=== PATIENT | male | born 1960 | race Caucasian/White ===

== ENCOUNTER → 2021-09-15 | Outpatient (CLI) | payer OTHER ==
[2021-09-15 14:40] LABS: Basophils # (A) 0.06 X 10*3/uL (0.00-0.10); Basophils % (A) 0.8 %; Eosinophils # (A) 0.33 X 10*3/uL (0.04-0.35); Eosinophils % (A) 4.3 %; HCT 48.2 % (39.6-50.0); HGB 15.3 g/dL (13.0-17.0); Immature Grans, Automated 0.4 %; Lymphocytes % (A) 28.5 %; MCH 28.6 pg (27.0-32.0); MCHC 31.7 g/dL (32.0-37.0); MCV 90.1 fL (80.0-97.0); Mean Platelet Volume 9.8 fL (9.5-12.2); Monocytes % (A) 9.1 %; NRBC Per 100 WBC 0 /100 WBCS (0.0-0.0); Neutrophils # (A) 4.41 X 10*3/uL (1.80-7.70); Neutrophils % (A) 56.9 %; Platelet Count 190 X 10*3/uL (140-440); RBC 5.35 X 10*6/uL (4.40-5.60); RDW 14.4 % (11.5-14.5); WBC 7.73 X 10*3/uL (4.50-10.00)
[2021-09-15 16:39] LABS: African American GFR (CKD) 107.2 (60.0-200.0); Anion Gap 11.6 mmol/L (10.00-18.00); BUN/Creat Ratio 18.67 Ratio (12.00-20.00); Blood Urea Nitrogen 16.8 mg/dL (9.0-27.0); Calcium 9.7 mg/dL (8.7-10.3); Carbon Dioxide 24.4 mmol/L (20.0-27.5); Non-African American GFR(CKD) 92.5 (60.0-200.0); Potassium 4.5 mmol/L (3.5-5.5)
== END | disposition home or self-care (01) ==
LOC: LABPAT 08:19
PROVIDERS: ATTEND Urology
DX: Z01.812 Encounter for preprocedural laboratory examination (principal); C61 Malignant neoplasm of prostate
CPT/HCPCS: 36415; 80048; 85025

== ENCOUNTER 2021-09-22 07:18 | Observation (INO) | payer OTHER ==
[2021-09-20 12:21] VITALS: BMI 33.5
--- NOTE | 2021-09-22 06:36 | P.GSHP ---
History of Present Illness H&P Date: 09/22/21 Chief Complaint: Prostate cancer The patient is a 61-year-old white male whose PSA level was 11.51 in April 2021. A repeat PSA level was 11.0. CHRISTIANO revealed right apical firmness. Prostate ultrasound revealed a 33 g prostate with an 11 mm right apical hypoechoic lesion. 3 of 6 right-sided biopsies revealed Bray[place] 7 adenocarcinoma. The left lateral mid biopsy contained a tiny focus of [place] 6 adenocarcinoma. The patient denies voiding symptoms. He does report erectile dysfunction, for which he takes sildenafil. Alternative treatment options were reviewed, and he has elected to undergo a robotic-assisted laparoscopic prostatectomy (RALP) with bilateral pelvic lymphadenectomy. The left neurovascular bundle will be preserved. He has been cleared by cardiology. - EENT Ears: bilateral: decreased hearing - Cardiovascular Cardiovascular: Reports high blood pressure - Genitourinary (Female) Genitourinary: Reports as per HPI Past Medical History Past Medical History: Atrial Fibrillation, Cancer, Thyroid Disorder Additional Past Medical History / Comment(s): Prostate cancer. History of Any Multi-Drug Resistant Organisms: None Reported Past Surgical History: Cardiac Ablation, Orthopedic Surgery Additional Past Surgical History / Comment(s): Left shoulder surgery. 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 Cardioversion X2. Past Anesthesia/Blood Transfusion Reactions: No Reported Reaction Past Psychological History: No Psychological Hx Reported Smoking Status: Never smoker Past Alcohol Use History: Occasional Past Drug Use History: None Reported - Past Family History Father Family Medical History: Cancer Mother Family Medical History: Deep Vein Thrombosis (DVT) Medications and Allergies Home Medications Medication Instructions Recorded Confirmed Type Levothyroxine Sodium [Synthroid] 50 mcg PO QAM 09/20/21 09/20/21 History Allergies Allergy/AdvReac Type Severity Reaction Status Date / Time No Known Allergies Allergy Verified 09/20/21 12:03 Surgical - Exam - General well developed, well nourished, no distress - Neck no masses, trachea midline - Respiratory normal respiratory effort - Abdomen Abdomen: soft, non tender, no guarding, no rigid, no rebound Hernia: umbilical - Genitourinary normal penis with no external lesions, testicles non-tender - Rectum Rectum: normal sphincter tone, no masses, other (Prostate mildly enlarged with right apical firmness) - Psychiatric oriented to time, oriented to person, oriented to place, speech is normal, memory intact Assessment and Plan (1) Malignant neoplasm of prostate Status: Acute Code(s): C61 - MALIGNANT NEOPLASM OF PROSTATE SNOMED Code(s): 323561937 Plan: Robotic-assisted laparoscopic prostatectomy with bilateral pelvic lymphadenectomy. The procedure has been reviewed in detail with the patient. He is aware of potential risks, which include anesthesia, bleeding, infection, intestinal injury (which may require a colostomy), ureteral injury, swelling of the penis post-operatively, bladder neck contracture, urethral stricture, lymphocele, post-operative ileus, thrombophlebitis, wound separation, and possible urinary fistula. In addition, I went into great detail concerning the possibility of postop urinary incontinence, which may fail to resolve. The patient has also been advised of the possibility of treatment failure, and the possible need for adjuvant therapy. He is interested in maintaining potency and thus desires left neurovascular bundle preservation. However, he understands the likelihood of postoperative erectile dysfunction despite this.
[~2021-09-22 07:18] MED LIST: DEXAMETHASONE SOD PHOSPHATE 4 MG/ML 1 ML VIAL IV ONE; HEPARIN SODIUM,PORCINE/PF 5,000 UNIT/0.5 ML SYRINGE SQ PRN; HYDROmorphone 0.5 MG/0.5 ML SYRINGE IVP PRN; LIDOCAINE 1% (10MG/ML) FOR IV START INTRADERMA PRN; METOCLOPRAMIDE 5 MG/ML 2 ML VIAL IVP PRN; MIDAZOLAM 2 MG/2 ML VIAL IV PRN; ONDANSETRON 4 MG/2 ML VIAL IVP ONE; ceFAZolin 3 GM in SODIUM CHLORIDE 0.9% 100 ML IVPB PRN
[2021-09-22] MEDS: LACTATED RINGERS 1,000 ML IV SCH (08:11)
[2021-09-22] MEDS ORDERED: MIDAZOLAM 2 MG/2 ML VIAL IVP ONE (08:43)
[2021-09-22] MEDS ORDERED: fentaNYL (PF) 50 MCG/ML 2 ML AMP IVP ONE (08:44)
[2021-09-22] MEDS ORDERED: BUPIVACAINE (PF) 0.25% 30 ML VIAL SQ ONE (09:10)
[2021-09-22] MEDS ORDERED: LACTATED RINGERS 1,000 ML IV ONE (12:13)
[2021-09-22] MEDS ORDERED: ONDANSETRON 4 MG/2 ML VIAL IVP PRN (13:40)
[2021-09-22] MEDS ORDERED: ACETAMINOPHEN TAB 325 MG TAB PO PRN (13:40)
[2021-09-22] MEDS ORDERED: ALBUTEROL NEBULIZED 2.5 MG/3 ML INHALATION ONE (14:15)
[2021-09-22] MEDS: MEPERIDINE 50 MG/ML SYRINGE IVP ONE ×2 (14:33→15:26)
--- NOTE | 2021-09-22 14:39 | P.ANPRN ---
Procedure Note - Anesthesia - Nerve Block Performed Bilateral Erector Spinae Single Time Out Performed: Yes ([id number]) Date of Procedure: 09/22/21 Procedure Start Time: 08:43 Procedure Stop Time: 08:48 Location of Patient: PreOp Indication: Acute Post-Operative Pain, Requested by Surgeon Specifically requested for management of pain by DrKrystle: William Vinson Sedation Type: Sedate with meaningful contact maintained Preparation: Sterile Prep Position: Prone Catheter: None Needle Types: Pajunk Needle Gauge: 21 Ultrasound used to visualize needle placement: Yes Ultrasound used to observe medication spread: Yes Injectate: 0.5% Ropivacaine (see comment for volume) (20cc + 10cc nacl pf each side) Blood Aspirated: No Pain Paresthesia on Injection Noted: No Resistance on Injection: Normal Image Stored and Saved: Yes Events: Uneventful and Well Tolerated
[2021-09-22] MEDS: KETOROLAC 15 MG/ML 1 ML VIAL IVP PRN (17:09)
[2021-09-22] MEDS: DEXTROSE 5%-0.45% NACL 1,000 ML IV SCH ×2 (17:53→19:26)
[2021-09-22] MEDS: HYDROmorphone 1 MG/ML 1 ML SYRINGE IVP PRN (19:25)
[2021-09-22] MEDS: HEPARIN SODIUM,PORCINE/PF 5,000 UNIT/0.5 ML SYRINGE SQ SCH (19:26)
[2021-09-22 20:58] LABS: Basophils % (A) 0 %; Eosinophils % (A) 0 %; HCT 47.9 % (39.0-53.0); HGB 14.8 gm/dL (13.0-17.5); Lymphocytes # (A) 0.8 k/uL (1.0-4.8); Lymphocytes % (A) 5 %; MCH 28.6 pg (25.0-35.0); MCV 92.2 fL (80.0-100.0); Mean Platelet Volume 7.3; Monocytes # (A) 0.7 k/uL (0-1.0); Monocytes % (A) 5 %; Neutrophils # (A) 13.4 k/uL (1.3-7.7); Neutrophils % (A) 89 %; Platelet Count 206 k/uL (150-450); RBC 5.19 m/uL (4.30-5.90); RDW 13.9 % (11.5-15.5); WBC 15.2 k/uL (3.8-10.6)
[2021-09-22 21:03] LABS: African American GFR (CKD) >90 (>60 ml/min/1.73 sqM); Anion Gap 7 mmol/L; Blood Urea Nitrogen 21 mg/dL (9-20); Calcium 8.7 mg/dL (8.4-10.2); Carbon Dioxide 23 mmol/L (22-30); Chloride 106 mmol/L (98-107); Glucose 140 mg/dL (74-99); Non-African American GFR(CKD) 84 (>60 ml/min/1.73 sqM); Sodium 136 mmol/L (137-145)
[2021-09-23] MEDS: HYDROmorphone 1 MG/ML 1 ML SYRINGE IVP PRN ×2 (00:12→19:17)
[2021-09-23] MEDS: LEVOTHYROXINE 50 MCG TAB PO SCH (04:13)
[2021-09-23] MEDS: DEXTROSE 5%-0.45% NACL 1,000 ML IV SCH ×3 (04:15→20:55)
[2021-09-23] MEDS: LACTATED RINGERS 1,000 ML IV SCH (04:18)
[2021-09-23] MEDS: KETOROLAC 15 MG/ML 1 ML VIAL IVP PRN ×2 (08:37→14:20)
[2021-09-23] MEDS: HEPARIN SODIUM,PORCINE/PF 5,000 UNIT/0.5 ML SYRINGE SQ SCH ×2 (09:38→20:53)
[2021-09-23] MEDS ORDERED: NEOSTIGMINE 1 MG/ML 10 ML VIAL ONE (12:15)
[2021-09-23] MEDS ORDERED: MIDAZOLAM 2 MG/2 ML VIAL ONE (12:15)
[2021-09-23] MEDS ORDERED: ROCURONIUM 10 MG/ML (5 ML VIAL) IV ONE (12:15)
[2021-09-23] MEDS ORDERED: LIDOCAINE 2% INJ 20 MG/ML (2 ML VIAL) ONE (12:15)
[2021-09-23] MEDS ORDERED: SUCCINYLCHOLINE CHLORIDE 100 MG/5 ML SYR IV ONE (12:15)
[2021-09-23] MEDS ORDERED: fentaNYL (PF) 50 MCG/ML 2 ML AMP ONE (12:15)
[2021-09-23] MEDS ORDERED: HYDROmorphone (PF) 1 MG/ML ONE (12:15)
[2021-09-23] MEDS ORDERED: PROPOFOL 10 MG/ML 20 ML VIAL IV ONE (12:15)
[2021-09-23] MEDS ORDERED: GLYCOPYRROLATE 0.2 MG/ML 2 ML VIAL ONE (12:15)
--- NOTE | 2021-09-23 14:12 | P.CONS ---
History of Present Illness - Reason for Consult Consult date: 09/23/21 Medical management Requesting physician: Fabio Alexandre - Chief Complaint Prostate surgery - History of Present Illness This is a pleasant 61-year-old patient of also Dr. Fabio Alexandre. Chronic stable medical conditions include atrial fibrillation, hypothyroid, and [id number] had open heart surgery for congenital defect. Patient's had previous 2 cardioversions. Patient has a PSA level of 11.5 in April 2021. Prostate ultrasound showed a 30 g prostate with the right apical hypoechoic lesion. 3 out of 6 right-sided biopsy revealed [place] 7 adenocarcinoma. Left lateral mid biopsy showed a tiny focus of Brayden 6 adenocarcinoma. Patient has erectile dysfunction. For which she takes sildenafil. Patient underwent robotic- assisted laparoscopic prostatectomy with bilateral pelvic lymphadenectomy. Postprocedure patient is a Nolen catheter in place. Has been locally. No nausea vomiting. A liquid diet. No cardiac symptoms. Yesterday evening patient did go into atrial fibrillation with a rapid ventricular rate. And then went back to better controlled. Heart rate around 100 to [place].. Review of systems: GEN.: Tired EYES: None HEENT: None NECK: None RESPIRATORY: None CARDIOVASCULAR: None GASTROINTESTINAL: None GENITOURINARY: As above MUSCULOSKELETAL: None LYMPHATICS: None HEMATOLOGICAL: None PSYCHIATRY: None NEUROLOGICAL: None Past medical history to include: Prostate cancer, atrial fibrillation, hypothyroid Social history: Lives with his girlfriend. 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 No smoking. Alcohol occasionally. Family history: Cancer Physical examination: VITAL SIGNS: 98.1, 77, 18, 110/69, 90% room air] GENERAL: BMI 35.1, laying in bed awake, bit tired. EYES: Pupils equal. Conjunctiva normal. HEENT: External appearance of nose and ears normal, oral cavity grossly normal. NECK: JVD not raised; masses not palpable. HEART: Heart sounds irregular; no edema. LUNGS: Respiratory rate normal; clear to auscultation. ABDOMEN: Soft, nontender, liver spleen not palpable, no masses palpable. Nolen catheter. PSYCH: Alert and oriented x3; mood and affect normal. MUSCULOSKELETAL:No Clubbing/cyanosis;muscles-grossly intact NEUROLOGICAL: Cranial nerves grossly intact; no facial asymmetry, power and sensation grossly intact. LYMPHATICS: No lymph nodes palpable in the axilla and neck INVESTIGATIONS, reviewed in the clinical context: White count 15.2 hemoglobin 14.8 platelets 206 sodium 136 potassium 5 BUN 21 creatinine 0.98 Telemetry strip personally reviewed by me: Atrial fibrillation with rapid ventricular rate Assessment and plan: -Chronic atrial fibrillation with increased rapid rate yesterday evening. Heart rate around heart rate today. We'll start Lopressor 12.5 by mouth twice a day. This is likely precipitated by change to volume status and sympathetic drive from pain. Patient chronically does not take any anticoagulation. Because of minimal SHIRAZ score. -Obesity BMI 35.1 Weight loss measures -Prostatectomy for adenocarcinoma Patient currently has a Nolen catheter. -Hypothyroid Synthroid 50 g a day Continue with telemetry. Lopressor 12.5 by mouth twice a day. Other medications to continue. Activity as tolerated. Discussed with patient. Thank you Dr. Hui - Past Medical History Past Medical History: Atrial Fibrillation, Cancer, Thyroid Disorder Additional Past Medical History / Comment(s): Prostate cancer. History of Any Multi-Drug Resistant Organisms: None Reported Past Surgical History: Cardiac Ablation, Orthopedic Surgery Additional Past Surgical History / Comment(s): Left shoulder surgery. 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 Cardioversion X2. Past Anesthesia/Blood Transfusion Reactions: No Reported Reaction Past Psychological History: No Psychological Hx Reported Smoking Status: Never smoker Past Alcohol Use History: Occasional Past Drug Use History: None Reported - Past Family History Father Family Medical History: Cancer Mother Family Medical History: Deep Vein Thrombosis (DVT) Medications and Allergies Home Medications Medication Instructions Recorded Confirmed Type Levothyroxine Sodium [Synthroid] 50 mcg PO QAM 09/20/21 09/22/21 History Allergies Allergy/AdvReac Type Severity Reaction Status Date / Time No Known Allergies Allergy Verified 09/22/21 07:45 Physical Exam Vitals: Vital Signs Temp Pulse Pulse Resp BP Pulse Ox 09/23/21 01:01 98.1 F 106 H 17 118/69 97 09/22/21 18:45 123 H 118/71 09/22/21 18:28 129 H 121/78 96 09/22/21 18:13 120 H 118/77 97 09/22/21 17:59 120 H 107/70 95 09/22/21 17:43 125 H 112/75 97 09/22/21 17:29 107 H 111/64 94 L 09/22/21 17:13 128 H 115/75 94 L 09/22/21 17:12 136 H 105/65 96 09/22/21 16:59 133 H 112/69 94 L 09/22/21 16:43 98.5 F 131 H 16 119/87 96 09/22/21 15:50 124 H 18 117/75 96 09/22/21 15:36 115 H 18 117/73 94 L 09/22/21 15:20 128 H 18 129/75 93 L 09/22/21 15:05 112 H 18 126/67 95 09/22/21 14:50 125 H 20 143/85 94 L 09/22/21 14:35 114 H 18 135/99 95 09/22/21 14:20 136 H 20 182/76 96 09/22/21 14:05 126 H 22 187/137 97 09/22/21 13:50 96.8 F L 14 126/74 98 Intake and Output 09/22/21 09/23/21 09/23/21 22:59 06:59 14:59 Intake Total 600 1750 Output Total 300 800 Balance 300 950 Intake: IV 500 Intake, IV Titration 1300 Amount Dextrose 5%-0.45% NaCl 1, 1300 000 ml @ 125 mls/hr IV . Q8H [facility] Rx#:[id number] Oral 100 450 Output: Urine 300 800 Other: Voiding Method Indwelling Catheter Results CBC & Chem 7: 09/22/21 20:28 09/22/21 20:27 Labs: Abnormal Lab Results - Last 24 Hours (Table) 09/22/21 09/22/21 Range/Units 20:27 20:28 WBC 15.2 H (3.8-10.6) k/uL Neutrophils # 13.4 H (1.3-7.7) k/uL Lymphocytes # 0.8 L (1.0-4.8) k/uL Sodium 136 L (137-145) mmol/L BUN 21 H (9-20) mg/dL Glucose 140 H (74-99) mg/dL
--- NOTE | 2021-09-23 14:17 | P.PN ---
Subjective Progress Note Date: 09/23/21 Postoperative day #1 status post robotic prostatectomy, patient was tachycardic overnight,. His history of A. fib. This morning having incisional pain along the umbilicus, denies any nausea or vomiting. Has not ambulated yet Objective - Vital Signs Vital signs: Vital Signs Temp 98.9 F 09/23/21 08:00 Pulse 97 09/23/21 08:00 Resp 18 09/23/21 08:00 BP 110/69 09/23/21 08:00 Pulse Ox 90 L 09/23/21 08:00 Intake & Output 09/22/21 09/23/21 09/23/21 18:59 06:59 18:59 Intake Total 2400 1750 Output Total 950 800 Balance 1450 950 Weight 137.7 kg Intake: IV 2300 Intake, IV Titration 1300 Amount Dextrose 5%-0.45% NaCl 1, 1300 000 ml @ 125 mls/hr IV . Q8H [facility] Rx#:[id number] Oral 100 450 Output: Urine 800 800 Estimated Blood Loss 150 Other: Voiding Method Indwelling Catheter Indwelling Catheter - Constitutional General appearance: Present: no acute distress - Gastrointestinal General gastrointestinal: Present: soft, tenderness (Along the umbilical incision). Absent: distended - Psychiatric Psychiatric: Present: A&O x's 3 - Labs CBC & Chem 7: 09/22/21 20:28 09/22/21 20:27 Labs: Abnormal Lab Results - Last 24 Hours (Table) 09/22/21 09/22/21 Range/Units 20:27 20:28 WBC 15.2 H (3.8-10.6) k/uL Neutrophils # 13.4 H (1.3-7.7) k/uL Lymphocytes # 0.8 L (1.0-4.8) k/uL Sodium 136 L (137-145) mmol/L BUN 21 H (9-20) mg/dL Glucose 140 H (74-99) mg/dL Assessment and Plan Assessment: Postoperative day #1 status post robotic prostatectomy. -Medical consulted for tachycardia -Ambulate -Pain control -Potential discharge home tomorrow
[2021-09-23] MEDS: METOPROLOL TARTRATE 12.5 MG TAB PO SCH ×2 (14:20→20:53)
[2021-09-24] MEDS: LACTATED RINGERS 1,000 ML IV SCH (05:36)
[2021-09-24] MEDS: HYDROmorphone 1 MG/ML 1 ML SYRINGE IVP PRN (05:38)
[2021-09-24] MEDS: LEVOTHYROXINE 50 MCG TAB PO SCH (05:39)
[2021-09-24] MEDS: DEXTROSE 5%-0.45% NACL 1,000 ML IV SCH ×3 (06:03→23:40)
--- NOTE | 2021-09-24 08:00 | P.OP ---
Date of Procedure: 09/22/21 Preoperative Diagnosis: Adenocarcinoma of the prostate, clinical stage [id number], umbilical hernia Postoperative Diagnosis: Same Procedure(s) Performed: Robotic-assisted laparoscopic prostatectomy (RALP), bilateral pelvic lymphadenectomy, umbilical hernia repair Anesthesia: PRASANTH Surgeon: William Vinson Buildings Painter #1: Devon Swartz Estimated Blood Loss (ml): 150 IV fluids (ml): 1,300 Pathology: other (Bilateral pelvic lymph nodes, prostate, seminal vesicles) Condition: stable Disposition: PACU Indications for Procedure: The patient is a 61-year-old white male whose PSA level was 11.51 in April 2021. A repeat PSA level was 11.0. CHRISTIANO revealed right apical firmness. Prostate ultrasound revealed a 33 g prostate with an 11 mm right apical hypoechoic lesion. 3 of 6 right-sided biopsies revealed [place] 7 adenocarcinoma. The left lateral mid biopsy contained a tiny focus of [place] 6 adenocarcinoma. The patient denies voiding symptoms. He does report erectile dysfunction, for which he takes sildenafil. Alternative treatment options were reviewed, and he has elected to undergo a robotic-assisted laparoscopic prostatectomy (RALP) with bilateral pelvic lymphadenectomy. The left neurovascular bundle will be preserved. He has been cleared by cardiology. Operative Findings: The patient was taken in the operating room and placed in the supine position. He was carefully positioned on a beanbag for stability. The abdomen and external genitalia were prepped and draped sterilely. A Nolen catheter was inserted. The Veress needle was passed through the anterior abdominal wall immediately cephalad to the umbilicus, and insufflation was performed to a pressure of 20 mm Hg. Once insufflation was performed, the Veress needle was removed and a supraumbilical incision was made, through which an 8 mm camera port was placed. Under camera guidance, 3 8 mm robotic ports were placed, 2 on the left and one on the right. A 12 mm port was placed on the right lateral side for use as an university administrative assistant port. A 5 mm port was placed to the right of the camera port for suction. The patient was placed in Trendelenburg position, and docking was then performed to the da Joon system utilizing a 4-arm approach. The abdomen was examined. The sigmoid colon was mobilized out of the pelvis. The peritoneum was incised lateral to the medial umbilical ligaments bilaterally, exposing the pubis. The peritoneum was then incised across the midline, allowing the bladder flap to be taken down. The endopelvic fascia was opened bilaterally, and muscular attachments from the urogenital diaphragm were swept away from the prostate. Bilateral pelvic lymphadenectomies were performed in the standard fashion. The peritoneal incisions were extended in a cephalad direction, and the vas deferens were divided bilaterally. Margins of dissection were the bifurcation of the iliac vessels proximally, the circumflex iliac vein distally, the external iliac artery laterally, and the obturator nerve medially. A combination of sharp and blunt dissection was used. Care was taken to avoid any neurovascular injury, and the use of monopolar electrocautery was avoided immediately adjacent to neur ovascular structures. The lymphatic package was clipped distally. No enlarged lymph nodes were encountered. There were no complications. The vesical neck was incised transversely, down to the lumen. The Nolen catheter was brought out through the anterior vesical neck incision and was used for traction. The posterior aspect of the vesical neck was incised, such that the full-thickness of the vesical neck was divided. The anterior layer of the Denonvilliers fascia was incised, exposing the vas deferens. Each were isolated and divided. Next, each of the seminal vesicles were dissected away from adjacent tissues, and vascular attachments were cauterized and divided. The posterior leaf of Denonvilliers fascia was incised transversely, allowing entry into the plane between the prostate and rectum. With lateral spreading, this plane was developed down to the apex. This exposed the lateral vascular pedicles bilaterally. These were clipped and divided in an antegrade fashion, down to the apex. The use of electrocautery was avoided to prevent thermal damage to the nerves. The remaining apical attachments were swept away from the prostate. The dorsal venous complex was incised, as well as periurethral tissue. At this point, only the urethra remained intact. This was transected immediately distal to the prostatic apex using cold scissors. The specimen was placed within a specimen bag. The dorsal venous complex was sutured using a V-Loc suture in a running fashion. The suture was passed through the periosteum of the pubis periurethral support. A second V-Loc suture was then used to place the Mitch stitch, incorporating the rhabdosphincter and the edge of Denonvilliers fascia. This allowed the bladder to be taken down to the urethra, leaving the vesical neck immediately adjacent to the urethra. The vesicourethral anastomosis was then performed using a V-Loc suture in a running fashion. After completing the anastomosis, an 18-Danish Nolen catheter was placed and approximately 150 mL of 0.9 normal saline were instilled into the bladder. No extravasation of irrigant from the vesicourethral anastomosis was noted. A small amount of oozing was noted from the vascular pedicles, so Surgicel was placed bilaterally. Tisseel was sprayed into the pelvis over the vascular pedicles, dorsal vein, and vesicourethral anastomosis. The patient was returned to the supine position. Undocking was performed, and the specimen bag sutures were passed through the camera port. After removing all the ports and allowing all of the CO2 to be released from the peritoneal cavity, the camera port incision was enlarged to allow removal of the surgical specimen. The fascia of this incision was then closed using 0 PDS suture in a running fashion. Each of the skin incisions were then closed using 4-0 Monocryl suture in a subcuticular fashion. Marcaine was injected at each of the incision sites. Dermabond was applied to each incision. The Nolen catheter was co nnected to gravity drainage. All sponge and needle counts were correct. The patient tolerated the procedure well was taken to the recovery room in stable condition. Description of Procedure: The patient was taken in the operating room and placed in the supine position. He was carefully positioned on a beanbag for stability. The abdomen and external genitalia were prepped and draped sterilely. A Nolen catheter was inserted. The Veress needle was passed through the anterior abdominal wall immediately cephalad to the umbilicus, and insufflation was performed to a pressure of 20 mm Hg. Once insufflation was performed, the Veress needle was removed and a supraumbilical incision was made, through which an 8 mm camera port was placed. Under camera guidance, 3 8 mm robotic ports were placed, 2 on the left and one on the right. A 12 mm port was placed on the right lateral side for use as an university administrative assistant port. A 5 mm port was placed to the right of the camera port for suction. The patient was placed in Trendelenburg position, and docking was then performed to the stickK Jono system utilizing a 4-arm approach. The abdomen was examined. The sigmoid colon was mobilized out of the pelvis. The peritoneum was incised lateral to the medial umbilical ligaments bilaterally, exposing the pubis. The peritoneum was then incised across the midline, allowing the bladder flap to be taken down. The endopelvic fascia was opened bilaterally, and muscular attachments from the urogenital diaphragm were swept away from the prostate. Bilateral pelvic lymphadenectomies were performed in the standard fashion. The peritoneal incisions were extended in a cephalad direction, and the vas deferens were divided bilaterally. Margins of dissection were the bifurcation of the iliac vessels proximally, the circumflex iliac vein distally, the external iliac artery laterally, and the obturator nerve medially. A combination of sharp and blunt dissection was used. Care was taken to avoid any neurovascular injury, and the use of monopolar electrocautery was avoided immediately adjacent to neurovascular structures. The lymphatic package was clipped distally. No enlarged lymph nodes were encountered. There were no complications. The vesical neck was incised transversely, down to the lumen. The Nolen catheter was brought out through the anterior vesical neck incision and was used for traction. The posterior aspect of the vesical neck was incised, such that the full-thickness of the vesical neck was divided. The anterior layer of the Denonvilliers fascia was incised, exposing the vas deferens. Each were isolated and divided. Next, each of the seminal vesicles were dissected away from adjacent tissues, and vascular attachments were cauterized and divided. The posterior leaf of Denonvilliers fascia was incised transversely, allowing entry into the plane between the prostate and rectum. With lateral spreading, this plane was developed down to the apex. This exposed the lateral vascular pedicles bilaterally. These were clipped and divided in an antegrade fashion, down to the apex. The use of electrocautery was avoided on the left side to prevent thermal damage to the nerves, as the left neurovascular bundle was preserved. The remaining apical attachments were swept away from the prostate. The dorsal venous complex was incised, as well as periurethral tissue. At this point, only the urethra remained intact. This was transected immediately distal to the prostatic apex using cold scissors. The specimen was placed within a specimen bag. The dorsal venous complex was sutured using a V-Loc suture in a running fashion. The suture was passed through the periosteum of the pubis periurethral support. A second V-Loc suture was then used to place the Mitch stitch, incorporating the rhabdosphincter and the edge of Denonvilliers fascia. This allowed the bladder to be taken down to the urethra, leaving the vesical neck immediately adjacent to the urethra. The vesicourethral anastomosis was then performed using a V-Loc suture in a running fashion. After completing the anastomosis, an 18-Danish Nolen catheter was placed and approximately 150 mL of 0.9 normal saline were instilled into the bladder. No extravasation of irrigant from the vesicourethral anastomosis was noted. Hemostasis was noted at this time to be e xcellent, and it was thus felt that a drain was unnecessary. Surgicel was placed bilaterally over the vascular pedicles. Tisseel was sprayed into the pelvis over the vascular pedicles, dorsal vein, and vesicourethral anastomosis. The patient was returned to the supine position. Undocking was performed, and the specimen bag sutures were passed through the camera port. After removing all the ports and allowing all of the CO2 to be released from the peritoneal cavity, the camera port incision was enlarged to allow removal of the surgical specimen. Attention was then paid to the umbilical hernia. The incision was extended inferiorly around the umbilicus to improve exposure to the hernia. The fascia was incised down to the hernia, and the hernia sac was reduced. The fascia of this incision was then closed using 0 PDS suture in a running fashion. This skin incision was closed using surgical rozina. The remaining incisions were then closed using 4-0 Monocryl suture in a subcuticular fashion. Marcaine was injected at each of the incision sites. Dermabond was applied to each incision. A sterile gauze dressing was applied over the umbilical incision. The Nolen catheter was connected to gravity drainage. All sponge and needle counts were correct. The patient tolerated the procedure well was taken to the recovery room in stable condition.
[2021-09-24] MEDS: HEPARIN SODIUM,PORCINE/PF 5,000 UNIT/0.5 ML SYRINGE SQ SCH ×2 (09:11→20:18)
[2021-09-24] MEDS: METOPROLOL TARTRATE 12.5 MG TAB PO SCH ×2 (09:11→20:18)
[2021-09-24] MEDS: HYDROcodone/APAP 5-325MG 1 EACH TAB PO PRN ×2 (12:15→16:40)
--- NOTE | 2021-09-24 13:01 | P.PN ---
Subjective Postoperative day #2 status post robotic prostatectomy. This morning having incisional pain along the umbilicus,slightly improved compared to yesterday. denies any nausea or vomiting. Has not ambulated yet Objective - Vital Signs Vital signs: Vital Signs Temp 98.5 F 09/24/21 08:00 Pulse 102 H 09/24/21 08:00 Resp 18 09/24/21 08:00 BP 122/76 09/24/21 08:00 Pulse Ox 94 L 09/24/21 08:00 Intake & Output 09/23/21 09/24/21 09/24/21 18:59 06:59 18:59 Intake Total 1270 1500 Output Total 1300 3400 Balance -30 1500 -3400 Intake: Intake, IV Titration 1500 Amount Dextrose 5%-0.45% NaCl 1, 1500 000 ml @ 125 mls/hr IV . Q8H [facility] Rx#:[id number] Oral 1270 Output: Urine 1300 3400 Other: Voiding Method Indwelling Catheter Indwelling Catheter Indwelling Catheter - Constitutional General appearance: Present: no acute distress - Gastrointestinal General gastrointestinal: Present: distended, soft. Absent: tenderness - Labs CBC & Chem 7: 09/22/21 20:28 09/22/21 20:27 Assessment and Plan Assessment: Postoperative day #2 status post robotic prostatectomy. -Medical consulted for tachycardia -Ambulate, emphasized with him the importance of ambulation given the risk of an ileus and blood clot -Pain control -Potential discharge home today if ambulating and pain improved vs tomorrow
--- NOTE | 2021-09-24 16:41 | P.PN ---
Progress Note - Text Progress Note Date: 09/24/21 - Chief Complaint Prostate surgery This is a pleasant 61-year-old patient of also Dr. Fabio Alexandre. Chronic stable medical conditions include atrial fibrillation, hypothyroid, and [id number] had open heart surgery for congenital defect. Patient's had previous 2 card ioversions. Patient has a PSA level of 11.5 in April 2021. Prostate ultrasound showed a 30 g prostate with the right apical hypoechoic lesion. 3 out of 6 right-sided biopsy revealed [place] 7 adenocarcinoma. Left lateral mid biopsy showed a tiny focus of [place] 6 adenocarcinoma. Patient has erectile dysfunction. For which she takes sildenafil. Patient underwent robotic- assisted laparoscopic prostatectomy with bilateral pelvic lymphadenectomy. Postprocedure patient is a Nolen catheter in place. Has been locally. No nausea vomiting. A liquid diet. No cardiac symptoms. Yesterday evening patient did go into atrial fibrillation with a rapid ventricular rate. And then went back to better controlled. Heart rate around 100 to [place].. September 24: On clear liquids. Slight improvement in pain. Nolen catheter in place. Heart rate strong 100. Active Medications Acetaminophen (Acetaminophen Tab 325 Mg Tab) 650 mg PO Q4HR PRN PRN Reason: Fever Stop: 10/22/21 13:41 Last Admin: 09/23/21 04:13 Dose: 650 mg Documented by: Hydrocodone Bitart/Acetaminophen (Hydrocodone/Apap 5-325mg 1 Each Tab) 1 each PO Q4HR PRN PRN Reason: Pain Last Admin: 09/24/21 16:40 Dose: 1 each Documented by: Heparin Sodium (Porcine) (Heparin Sodium,Porcine/Pf 5,000 Unit/0.5 Ml Syringe) 5,000 unit SQ Q12HR NEAL Stop: 10/22/21 21:01 Last Admin: 09/24/21 09:11 Dose: 5,000 unit Documented by: Lactated Ringer's (Lactated Ringers) 1,000 mls @ 20 mls/hr IV .Q24H NEAL Stop: 10/22/21 05:59 Last Admin: 09/24/21 05:36 Dose: Not Given Documented by: Dextrose/Sodium Chloride (Dextrose 5%-1/2ns Iv Soln) 1,000 mls @ 125 mls/hr IV .Q8H NEAL Stop: 10/22/21 13:46 Last Admin: 09/24/21 14:36 Dose: 125 mls/hr Documented by: Ketorolac Tromethamine (Ketorolac 15 Mg/Ml 1 Ml Vial) 15 mg IVP Q6HR PRN PRN Reason: Mild to Moderate Pain Stop: 09/25/21 13:41 Last Admin: 09/23/21 14:20 Dose: 15 mg Documented by: Levothyroxine Sodium (Levothyroxine 50 Mcg Tab) 50 mcg PO QAM@0630 [facility] Stop: 10/23/21 06:31 Last Admin: 09/24/21 05:39 Dose: 50 mcg Documented by: Lidocaine HCl (Lidocaine 1% (10mg/Ml) For Iv Start) 0.1 ml INTRADERMA PER PROTOCOL PRN PRN Reason: IV Start Stop: 10/22/21 05:59 Metoprolol Tartrate (Metoprolol Tartrate 12.5 Mg Tab) 12.5 mg PO BID [facility] Last Admin: 09/24/21 09:11 Dose: 12.5 mg Documented by: Ondansetron HCl (Ondansetron 4 Mg/2 Ml Vial) 4 mg IVP Q8HR PRN PRN Reason: Nausea Stop: 10/22/21 13:41 Past medical history to include: Prostate cancer, atrial fibrillation, hypothyroid Social history: Lives with his girlfriend. 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 No smoking. Alcohol occasionally. Family history: Cancer Physical examination: VITAL SIGNS: 98, 91, 18, 140/88, 96% room air GENERAL: laying in bed awake, bit tired. EYES: Pupils equal. Conjunctiva normal. HEENT: External appearance of nose and ears normal, oral cavity grossly normal. NECK: JVD not raised; masses not palpable. HEART: Heart sounds irregular; no edema. LUNGS: Respiratory rate normal; clear to auscultation. ABDOMEN: Soft, nontender, liver spleen not palpable, no masses palpable. Nolen catheter. PSYCH: Alert and oriented x3; mood and affect normal. MUSCULOSKELETAL:No Clubbing/cyanosis;muscles-grossly intact INVESTIGATIONS, reviewed in the clinical context: White count 15.2 hemoglobin 14.8 platelets 206 sodium 136 potassium 5 BUN 21 creatinine 0.98 Telemetry strip personally reviewed by me: Atrial fibrillation with rapid ventricular rate Assessment and plan: -Chronic atrial fibrillation with increased rapid rate yesterday evening. Heart rate around heart rate today. We'll start Lopressor 12.5 by mouth twice a day. This is likely precipitated by change to volume status and sympathetic drive from pain. Patient chronically does not take any anticoagulation. Because of minimal SHIRAZ score. Lopressor 12.5 by mouth twice a day. No anticoagulation. -Obesity BMI 35.1 Weight loss measures -Prostatectomy for adenocarcinoma Patient currently has a Nolen catheter. -Hypothyroid Synthroid 50 g a day . Activity as tolerated. Advance diet. Continue current medications. Thank you Dr. Hui -
[2021-09-25] MEDS: HYDROcodone/APAP 5-325MG 1 EACH TAB PO PRN ×3 (00:49→12:25)
[2021-09-25] MEDS: LACTATED RINGERS 1,000 ML IV SCH (04:52)
[2021-09-25] MEDS: LEVOTHYROXINE 50 MCG TAB PO SCH (05:32)
[2021-09-25] MEDS: DEXTROSE 5%-0.45% NACL 1,000 ML IV SCH ×2 (05:46→08:24)
[2021-09-25] MEDS: HEPARIN SODIUM,PORCINE/PF 5,000 UNIT/0.5 ML SYRINGE SQ SCH (08:24)
[2021-09-25] MEDS: METOPROLOL TARTRATE 12.5 MG TAB PO SCH (08:24)
--- NOTE | 2021-09-25 11:26 | P.PN ---
Progress Note - Text Progress Note Date: 09/25/21 - Chief Complaint Prostate surgery This is a pleasant 61-year-old patient of also Dr. Fabio Alexandre. Chronic stable medical conditions include atrial fibrillation, hypothyroid, and 9093 had open heart surgery for congenital defect. Patient's had previous 2 card ioversions. Patient has a PSA level of 11.5 in April 2021. Prostate ultrasound showed a 30 g prostate with the right apical hypoechoic lesion. 3 out of 6 right-sided biopsy revealed [place] 7 adenocarcinoma. Left lateral mid biopsy showed a tiny focus of [place] 6 adenocarcinoma. Patient has erectile dysfunction. For which she takes sildenafil. Patient underwent robotic- assisted laparoscopic prostatectomy with bilateral pelvic lymphadenectomy. Postprocedure patient is a Nolen catheter in place. Has been locally. No nausea vomiting. A liquid diet. No cardiac symptoms. Yesterday evening patient did go into atrial fibrillation with a rapid ventricular rate. And then went back to better controlled. Heart rate around 100 to [place].. September 24: On clear liquids. Slight improvement in pain. Nolen catheter in place. Heart rate strong 100. September 25: Diet advanced. Nolen catheter in place. She'll be going home with the same. Breathing stable. Pain control. Patient to follow-up with Dr. Alexandre upon discharge. Atrial fibrillation rate controlled. 6 Active Medications Acetaminophen (Acetaminophen Tab 325 Mg Tab) 650 mg PO Q4HR PRN PRN Reason: Fever Stop: 10/22/21 13:41 Last Admin: 09/23/21 04:13 Dose: 650 mg Documented by: Hydrocodone Bitart/Acetaminophen (Hydrocodone/Apap 5-325mg 1 Each Tab) 1 each PO Q4HR PRN PRN Reason: Pain Last Admin: 09/25/21 08:26 Dose: 1 each Documented by: Heparin Sodium (Porcine) (Heparin Sodium,Porcine/Pf 5,000 Unit/0.5 Ml Syringe) 5,000 unit SQ Q12HR NEAL Stop: 10/22/21 21:01 Last Admin: 09/25/21 08:24 Dose: 5,000 unit Documented by: Lactated Ringer's (Lactated Ringers) 1,000 mls @ 20 mls/hr IV .Q24H NEAL Stop: 10/22/21 05:59 Last Admin: 09/25/21 04:52 Dose: Not Given Documented by: Dextrose/Sodium Chloride (Dextrose 5%-1/2ns Iv Soln) 1,000 mls @ 125 mls/hr IV .Q8H [facility] Stop: 10/22/21 13:46 Last Admin: 09/25/21 08:24 Dose: 125 mls/hr Documented by: Ketorolac Tromethamine (Ketorolac 15 Mg/Ml 1 Ml Vial) 15 mg IVP Q6HR PRN PRN Reason: Mild to Moderate Pain Stop: 09/25/21 13:41 Last Admin: 09/23/21 14:20 Dose: 15 mg Documented by: Levothyroxine Sodium (Levothyroxine 50 Mcg Tab) 50 mcg PO QAM@0630 [facility] Stop: 10/23/21 06:31 Last Admin: 09/25/21 05:32 Dose: 50 mcg Documented by: Lidocaine HCl (Lidocaine 1% (10mg/Ml) For Iv Start) 0.1 ml INTRADERMA PER KIMBERLI COL PRN PRN Reason: IV Start Stop: 10/22/21 05:59 Metoprolol Tartrate (Metoprolol Tartrate 12.5 Mg Tab) 12.5 mg PO BID [facility] Last Admin: 09/25/21 08:24 Dose: 12.5 mg Documented by: Ondansetron HCl (Ondansetron 4 Mg/2 Ml Vial) 4 mg IVP Q8HR PRN PRN Reason: Nausea Stop: 10/22/21 13:41 Past medical history to include: Prostate cancer, atrial fibrillation, hypothyroid Social history: Lives with his girlfriend. 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 No smoking. Alcohol occasionally. Family history: Cancer Physical examination: VITAL SIGNS: 97.8, 100, 18, 1 38/91, 97% room air GENERAL: laying in bed awake, comfortable. EYES: Pupils equal. Conjunctiva normal. HEENT: External appearance of nose and ears normal, oral cavity grossly normal. NECK: JVD not raised; masses not palpable. HEART: Heart sounds irregular; no edema. LUNGS: Respiratory rate normal; clear to auscultation. ABDOMEN: Soft, nontender, liver spleen not palpable, no masses palpable. Nolen catheter. PSYCH: Alert and oriented x3; mood and affect normal. MUSCULOSKELETAL:No Clubbing/cyanosis;muscles-grossly intact INVESTIGATIONS, reviewed in the clinical context: White count 15.2 hemoglobin 14.8 platelets 206 sodium 136 potassium 5 BUN 21 creatinine 0.98 Telemetry strip personally reviewed by me: Atrial fibrillation with rapid ventricular rate Assessment and plan: -Chronic atrial fibrillation with increased rapid rate yesterday evening. Heart rate around heart rate today. We'll start Lopressor 12.5 by mouth twice a day. This is likely precipitated by change to volume status and sympathetic drive from pain. Patient chronically does not take any anticoagulation. Because of minimal SHIRAZ score. Lopressor 12.5 by mouth twice a day. No anticoagulation. -Obesity BMI 35.1 Weight loss measures -Prostatectomy for adenocarcinoma Patient currently has a Nolen catheter. -Hypothyroid Synthroid 50 g a day Discussed with patient. Follow-up with Dr. Alexandre. Prescription of Lopressor was sent. Atrial fibrillation rate controlled. Thank you Dr. Hui -
--- NOTE | 2021-09-25 12:27 | P.DS ---
Providers Date of admission: 09/23/21 09:32 Attending physician: William Vinson Consults: 09/22/21 20:11 Consult Physician Routine Consulting Provider: Gregory Lehman Consult Reason/Comments: Medical Management Do you want consulting provider notified?: Yes Primary care physician: Fabio Alexandre [facility] Course: This is 61-year-old male with history of prostate cancer. Underwent a robotic prostatectomy by Dr. Vinson on September 22. Patient developed tachycardia postoperatively a medical consult was obtained. His tachycardia resolved on post op day #1. Patient has slightly prolonged hospital stay secondary to intractable pain along the incision. Pain resolved on postoperative day #3. He was discharged home on postoperative day #3, time of discharge was tolerating a diet, ambulating, pain was controlled Plan - Discharge Summary Discharge Rx Participant: No New Discharge Prescriptions: New Ciprofloxacin HCl [Cipro] 250 mg PO Q12HR #6 tablet Ketorolac [Toradol] 10 mg PO Q6HR PRN #15 tab PRN Reason: Pain HYDROcodone/APAP 5-325MG [English 5-325] 1 tab PO Q6HR PRN 3 Days #6 tab PRN Reason: Pain Metoprolol Tartrate [Lopressor] 12.5 mg PO BID #60 tab Continue Levothyroxine Sodium [Synthroid] 50 mcg PO QAM Discharge Medication List Levothyroxine Sodium [Synthroid] 50 mcg PO QAM 09/20/21 [History] Ciprofloxacin HCl [Cipro] 250 mg PO Q12HR #6 tablet 09/24/21 [Rx] HYDROcodone/APAP 5-325MG [English 5-325] 1 tab PO Q6HR PRN 3 Days #6 tab 09/24/21 [Rx] Ketorolac [Toradol] 10 mg PO Q6HR PRN #15 tab 09/24/21 [Rx] Metoprolol Tartrate [Lopressor] 12.5 mg PO BID #60 tab 09/25/21 [Rx] Follow up Appointment(s)/Referral(s): Fabio Alexandre MD [Primary Care Provider] - 1 Week Patient Instructions/Handouts: Prostate Cancer (DC), Umbilical Hernia (DC), Robot Assisted Laparoscopic Prostatectomy (DC) Activity/Diet/Wound Care/Special Instructions: Discharge home with Nolen catheter. Instruct patient to use overnight drainage bag as well as urinary leg bag. Okay to shower. Diet as tolerated. No lifting, driving, or strenuous activity. Reassure patient that abdominal wall ecchymosis and penoscrotal swelling are normal start cipro 1 day prior to your follow-up appointment Discharge Disposition: HOME SELF-CARE
[2021-09-25 14:36] VITALS: BP 130/85; PULSE 106; RESP 16; TEMP 97.6
== END 2021-09-25 15:05 | disposition home or self-care (01) ==
LOC: OR 07:18 → 4SSUR 13:49 → OR 09-23 09:32
PROVIDERS: ADMIT Urology; ATTEND Urology
DX: C61 Malignant neoplasm of prostate (principal); N52.9 Male erectile dysfunction, unspecified; K42.9 Umbilical hernia without obstruction or gangrene; I48.20 Chronic atrial fibrillation, unspecified; H91.93 Unspecified hearing loss, bilateral; I10 Essential (primary) hypertension; I25.10 Atherosclerotic heart disease of native coronary artery without angina pectoris; Z80.9 Family history of malignant neoplasm, unspecified; E03.9 Hypothyroidism, unspecified; I45.10 Unspecified right bundle-branch block; E66.9 Obesity, unspecified; Z68.35 Body mass index [BMI] 35.0-35.9, adult; Z82.49 Family history of ischemic heart disease and other diseases of the circulatory system; Z98.890 Other specified postprocedural states; Z79.890 Hormone replacement therapy; Z79.899 Other long term (current) drug therapy
CPT/HCPCS: 38571; 55866; S2900; 64999; 80048; 85025; 86850; 86900; 86901; 88307; 88309; 93005